=== PATIENT | male | born 1995 | race Caucasian/White ===

== ENCOUNTER 2019-06-09 15:26 | Emergency (ER) | payer OTHER ==
[~2019-06-09] VITALS: Ht 175.3 cm; Wt 73.0 kg
[2019-06-09] MEDS ORDERED: LEVE500 PO ×2 (15:38→15:57)
[2019-06-09] MEDS ORDERED: Vimpat150 MG (15:38)
[2019-06-09] MEDS ORDERED: Vimpat200 MG PO ×3 (15:38→16:00)
[2019-06-09] MEDS ORDERED: Sudogest30 MG PO (15:57)
[2019-06-09] MEDS ORDERED: Flonase 0.05% N16 GM ×2 (15:57→16:00)
[2019-06-09] MEDS ORDERED: Vimpat150 MG PO ×2 (15:57→16:00)
== END 2019-06-09 16:08 | disposition home or self-care (01) ==
LOC: ER 15:26
DX: J02.9 Acute pharyngitis, unspecified (principal); H69.90 Unspecified Eustachian tube disorder, unspecified ear; Z76.0 Encounter for issue of repeat prescription; Z79.899 Other long term (current) drug therapy; F17.200 Nicotine dependence, unspecified, uncomplicated
CPT/HCPCS: 87081; 99282; J1100

== ENCOUNTER 2019-06-12 22:39 | Emergency (ER) | payer OTHER ==
[~2019-06-12] VITALS: Ht 177.8 cm; Wt 73.0 kg
[~2019-06-12 22:39] MED LIST: Flonase 0.05% N16 GM; LEVE500 PO; Sudogest30 MG PO; Vimpat150 MG; Vimpat150 MG PO; Vimpat200 MG PO
[2019-06-13] MEDS ORDERED: Vimpat200 MG PO (14:06)
== END 2019-06-13 00:05 | disposition home or self-care (01) ==
LOC: ER 22:39
DX: G40.909 Epilepsy, unspecified, not intractable, without status epilepticus (principal); Z79.899 Other long term (current) drug therapy
CPT/HCPCS: 99281

== ENCOUNTER 2019-06-13 13:31 | Emergency (ER) | payer OTHER ==
[~2019-06-13] VITALS: Ht 175.3 cm; Wt 72.6 kg
[2019-06-13] MEDS ORDERED: Vimpat200 MG PO (14:06)
== END 2019-06-13 14:33 | disposition home or self-care (01) ==
LOC: ER 13:31
DX: G40.409 Other generalized epilepsy and epileptic syndromes, not intractable, without status epilepticus (principal); Z76.0 Encounter for issue of repeat prescription; Z79.899 Other long term (current) drug therapy
CPT/HCPCS: 99281

== ENCOUNTER 2019-06-13 22:53 | Emergency (ER) | payer OTHER ==
[~2019-06-13] VITALS: Ht 177.8 cm; Wt 72.6 kg
== END 2019-06-14 00:32 | disposition home or self-care (01) ==
LOC: ER 22:53
DX: G40.909 Epilepsy, unspecified, not intractable, without status epilepticus (principal); S01.512A Laceration without foreign body of oral cavity, initial encounter; F17.210 Nicotine dependence, cigarettes, uncomplicated; Z79.899 Other long term (current) drug therapy
CPT/HCPCS: 82947; 99283

== ENCOUNTER 2019-06-15 10:28 | Emergency (ER) | payer OTHER ==
[~2019-06-15] VITALS: Ht 177.8 cm; Wt 73.0 kg
== END 2019-06-15 11:10 | disposition home or self-care (01) ==
LOC: ER 10:28
DX: G40.909 Epilepsy, unspecified, not intractable, without status epilepticus (principal); F17.200 Nicotine dependence, unspecified, uncomplicated; Z76.0 Encounter for issue of repeat prescription; Z79.899 Other long term (current) drug therapy

== ENCOUNTER 2019-06-22 13:30 | Emergency (ER) | payer OTHER ==
[~2019-06-22] VITALS: Ht 177.8 cm; Wt 73.0 kg
[2019-06-22 14:02] LABS: BASOPHILS ABSOLUTE AUTO 0.05 K/mm3 (0.00-0.23); BASOPHILS PERCENT AUTO 1 % (0-2); EOSINOPHILS PERCENT AUTO 2 % (0-6); Hematocrit 46.5 % (37.0-53.0); Hemoglobin 15.3 g/dL (13.5-17.5); IMMATURE GRAN ABSOLUTE AUTO 0.02 K/mm3 (0.00-0.10); IMMATURE GRAN PERCENT AUTO 0 % (0-1); LYMPHOCYTES ABSOLUTE AUTO 1.87 K/mm3 (0.84-5.20); LYMPHOCYTES PERCENT AUTO 22 % (21-46); MONOCYTES ABSOLUTE AUTO 0.55 K/mm3 (0.16-1.47); MONOCYTES PERCENT AUTO 6 % (4-13); Mean Corpuscular HGB 31.1 pg (26.0-34.0); Mean Corpuscular HGB Conc 32.9 g/dL (31.5-36.5); Mean Corpuscular Volume 95 fL (80-100); Mean Platelet Volume 10.7 fL (9.1-12.4); NEUTROPHILS ABSOLUTE AUTO 5.84 K/mm3 (1.96-9.15); NEUTROPHILS PERCENT AUTO 69 % (41-73); Platelet Count 210 K/mm3 (150-400); RDW Coefficient Variation 11.9 % (11.7-14.2); RDW Standard Deviation 41.8 fL (35.1-46.3); Red Blood Cell Count 4.92 M/mm3 (4.30-5.90); White Blood Cell Count 8.53 K/mm3 (4.00-11.30)
[2019-06-22 14:23] LABS: Alanine Aminotransfer (ALT/SGP 21 U/L (12-78); Albumin, Blood 3.9 g/dL (3.4-5.0); Albumin/Globulin Ratio 1.1 (0.8-1.8); Alk Phos 47 U/L (50-136); Anion Gap 9 mmol/L (6-16); Aspartate Aminotrans (AST/SGOT 14 U/L (12-37); Bilirubin, Total 0.3 mg/dL (0.1-1.0); Blood Urea Nitrogen 9 mg/dL (8-24); Bun/Creatinine Ratio 9.2 (12.0-20.0); CO2, Blood 22 mmol/L (21-32); Calcium, Blood 9.1 mg/dL (8.5-10.1); Chloride, Blood 108 mmol/L (98-108); Creatinine, Blood 0.97 mg/dL (0.60-1.20); Globulin, Blood 3.4 g/dL (2.2-4.0); Glomerular Filtration Rate >60 (60-); Glucose, Blood 96 mg/dL (70-99); Potassium, Blood 4.3 mmol/L (3.5-5.5); Sodium, Blood 139 mmol/L (136-145); Total Protein, Blood 7.3 g/dL (6.4-8.2)
[2019-06-22 17:21] LABS: U Amphetamine Screen Not Detected; U Barbituate Screen Not Detected; U Benzodiazapine Screen Not Detected; U Buprenorphine Screen Not Detected; U Cannabinoids Screen DETECTED; U Cocaine Screen Not Detected; U Methadone Screen Not Detected; U Methamphetamine Screen Not Detected; U Opiates Screen Not Detected; U Oxycodone Screen Not Detected; U Phencyclidine Screen Not Detected; U Propoxyphene Screen Not Detected
== END 2019-06-22 17:07 | disposition home or self-care (01) ==
LOC: ER 13:30
PROVIDERS: Physician Assistant
DX: G40.909 Epilepsy, unspecified, not intractable, without status epilepticus (principal); Z79.899 Other long term (current) drug therapy
CPT/HCPCS: 36415; 80053; 85025; 99284-25

== ENCOUNTER 2019-06-27 10:43 | Emergency (ER) | payer OTHER ==
[~2019-06-27] VITALS: Ht 177.8 cm; Wt 73.0 kg
[2019-06-28] MEDS ORDERED: Vimpat200 MG PO (12:09)
== END 2019-06-27 11:34 | disposition home or self-care (01) ==
LOC: ER 10:43
DX: G40.909 Epilepsy, unspecified, not intractable, without status epilepticus (principal); Z76.0 Encounter for issue of repeat prescription; F17.210 Nicotine dependence, cigarettes, uncomplicated; Z79.899 Other long term (current) drug therapy
CPT/HCPCS: 99281

== ENCOUNTER 2019-06-28 10:50 | Emergency (ER) | payer OTHER ==
[~2019-06-28] VITALS: Ht 177.8 cm; Wt 73.0 kg
[2019-06-28] MEDS ORDERED: Vimpat200 MG PO (12:09)
== END 2019-06-28 12:18 | disposition home or self-care (01) ==
LOC: ER 10:50
DX: G40.909 Epilepsy, unspecified, not intractable, without status epilepticus (principal); Z76.0 Encounter for issue of repeat prescription; F17.210 Nicotine dependence, cigarettes, uncomplicated; Z79.899 Other long term (current) drug therapy
CPT/HCPCS: 99281

== ENCOUNTER 2019-06-29 10:31 | Emergency (ER) | payer OTHER ==
[~2019-06-29] VITALS: Ht 177.8 cm; Wt 73.0 kg
== END 2019-06-29 11:18 ==
LOC: ER 10:31
DX: G40.909 Epilepsy, unspecified, not intractable, without status epilepticus (principal); Z76.0 Encounter for issue of repeat prescription; F17.200 Nicotine dependence, unspecified, uncomplicated; Z79.899 Other long term (current) drug therapy
CPT/HCPCS: 99281

== ENCOUNTER 2019-07-14 18:06 | Emergency (ER) | payer OTHER ==
[~2019-07-14] VITALS: Ht 177.8 cm; Wt 73.0 kg
[2019-07-14] MEDS ORDERED: Vimpat200 MG PO (18:28)
== END 2019-07-14 18:30 | disposition home or self-care (01) ==
LOC: ER 18:06
DX: G40.909 Epilepsy, unspecified, not intractable, without status epilepticus (principal)
CPT/HCPCS: 99281

== ENCOUNTER 2019-12-04 22:53 | Emergency (ER) | payer OTHER ==
[~2019-12-04] VITALS: Ht 177.8 cm; Wt 63.5 kg
[2019-12-04] MEDS ORDERED: LEVE500 PO (23:23)
== END 2019-12-04 23:34 | disposition home or self-care (01) ==
LOC: ER 22:53
DX: G40.909 Epilepsy, unspecified, not intractable, without status epilepticus (principal); Z76.0 Encounter for issue of repeat prescription; Z79.899 Other long term (current) drug therapy; F17.200 Nicotine dependence, unspecified, uncomplicated
CPT/HCPCS: 99282

== ENCOUNTER 2020-04-14 11:28 | Emergency (ER) | payer OTHER ==
[~2020-04-14] VITALS: Ht 180.3 cm; Wt 72.6 kg
[2020-04-14] MEDS ORDERED: VIMPAT150 M1 PO (12:11)
[2020-04-14] MEDS ORDERED: Oxcarbazepine300 MG PO (12:11)
[2020-04-14] MEDS ORDERED: LEVETIRACETAM500 M3 PO (12:11)
[2020-04-14 12:40] LABS: Calcium, Ionized (POC) 1.21 mmol/L (1.10-1.46); Chloride (POC) 103 mmol/L (98-108); Glucose (ISTAT POC) 113 mg/dL (70-99); Potassium (POC) 4.6 mmol/L (3.5-5.5); Sodium (POC) 137 mmol/L (135-148); Total CO2 (POC) 23 mmol/L (21-32)
== END 2020-04-14 13:08 | disposition home or self-care (01) ==
LOC: ER 11:28
PROVIDERS: Emergency Medicine
DX: M54.9 Dorsalgia, unspecified (principal); Z79.899 Other long term (current) drug therapy; G40.909 Epilepsy, unspecified, not intractable, without status epilepticus; F17.200 Nicotine dependence, unspecified, uncomplicated
CPT/HCPCS: 36415; 80047; 85014; 96360; 99283-25; J7030

== ENCOUNTER 2020-05-15 15:27 | Emergency (ER) | payer OTHER ==
[~2020-05-15] VITALS: Ht 177.8 cm; Wt 72.6 kg
[~2020-05-15 15:27] MED LIST changes: +LEVETIRACETAM500 M3 PO; +Oxcarbazepine300 MG PO; +VIMPAT150 M1 PO
[2020-05-15] MEDS ORDERED: Norco 5-325 Ta1 EACH PO (15:59)
[2020-05-15] MEDS ORDERED: Bactrim Ds Tab1 EACH PO (15:59)
== END 2020-05-15 16:18 | disposition home or self-care (01) ==
LOC: ER 15:27
DX: L02.01 Cutaneous abscess of face (principal); G40.909 Epilepsy, unspecified, not intractable, without status epilepticus; F17.210 Nicotine dependence, cigarettes, uncomplicated; Z79.899 Other long term (current) drug therapy
CPT/HCPCS: 10060; 87070; 87075; 87077; 87147; 87186; 87205; 99283-25; A9270-GY